=== PATIENT | male | born 1990 | race African-American/Black ===

== ENCOUNTER 2021-04-09 11:17 | Emergency (ER) | payer OTHER ==
[~2021-04-09] VITALS: Ht 188 cm; Wt 77.1 kg
== END 2021-04-09 11:43 | disposition home or self-care (01) ==
LOC: ER 11:27
DX: B34.9 Viral infection, unspecified (principal); R50.9 Fever, unspecified; M79.605 Pain in left leg; M79.604 Pain in right leg
CPT/HCPCS: 99282